=== PATIENT | female | born 1970 | race Caucasian/White ===

== ENCOUNTER 2018-05-14 20:21 | Emergency (ER) | payer OTHER ==
[~2018-05-14] VITALS: Ht 157.5 cm; Wt 65.8 kg
[2018-05-14 20:25] VITALS: BP_SYST 133
--- NOTE | 2018-05-14 20:25 | NUR ---
Patient vital signs stable, condition stable to be placed in waiting room at this time. No acute distress noted. Will continue to monitor.
--- NOTE | 2018-05-14 21:10 | NUR ---
Patient called for placement no answer and not found in ED waiting room.
--- NOTE | 2018-05-14 21:15 | NUR ---
Patient called for placement no answer and not found in ED waiting room.
--- NOTE | 2018-05-14 21:29 | NUR ---
Patient called for placement no answer and not found in ED waiting room.
== END 2018-05-14 21:29 | disposition left against medical advice (07) ==
LOC: SED 20:21
DX: T78.40XA Allergy, unspecified, initial encounter (principal); Z53.21 Procedure and treatment not carried out due to patient leaving prior to being seen by health care provider

== ENCOUNTER 2023-01-14 10:57 | Emergency (ER) | payer BC, OTHER ==
[~2023-01-14] VITALS: Ht 162.6 cm; Wt 70.3 kg
[2023-01-14 11:17] VITALS: BP_SYST 145
[2023-01-14] MEDS ORDERED: MECLIZINE HCL 25 MG TABLET (ANITVERT) PO ONE (11:45)
[2023-01-14] MEDS ORDERED: NACL 0.9% 1,000 ML IV ONE (11:45)
[2023-01-14] MEDS ORDERED: KETOROLAC TROMETHAMINE 15 MG VIAL IVP ONE (11:45)
[2023-01-14 11:47] LABS: CALCIUM 8.3 mg/dL (8.4-11.0); CREATININE 0.77 mg/dL (0.55-1.30)
[2023-01-14 11:49] LABS: BASOPHILS % (AUTO) 0.5 % (0.0-2.0); EOSINOPHILS % (AUTO) 0.1 % (0.0-4.0); HEMATOCRIT 40.9 % (36-48); HEMOGLOBIN 13.2 g/dL (12.0-16.0); LYMPHOCYTES # (AUTO) 1.1 K/uL (1.0-5.5); LYMPHOCYTES % (AUTO) 15.4 % (20.5-51.5); MEAN CORPUSCULAR HEMOGLOBIN 25 pg (27-31); MEAN CORPUSCULAR HGB CONC 32 % (32-36); MEAN CORPUSCULAR VOLUME 77 fL (79.0-98.0); MONOCYTES # (AUTO) 0.2 K/uL (0.0-1.0); MONOCYTES % (AUTO) 2.3 % (1.7-9.3); NEUTROPHILS # (AUTO) 5.8 K/uL (1.8-7.7); NEUTROPHILS % (AUTO) 81.7 % (40.0-70.0); PLATELET COUNT (AUTO) 266 K/uL (130-430); RED BLOOD CELL COUNT(AUTO) 5.34 MIL/uL (4.2-6.2); RED CELL DISTRIBUTION WIDTH 16.8 % (9.0-15.0); WHITE BLOOD COUNT (AUTO) 7.1 K/uL (4.8-10.8)
[2023-01-14 11:51] LABS: ALBUMIN 3.7 g/dL (3.4-4.8); TOTAL BILIRUBIN 0.3 mg/dL (0.0-1.0)
[2023-01-14] MEDS ORDERED: MECL-108 PO (13:16)
[2023-01-14 13:33] VITALS: BP_SYST 116
== END 2023-01-14 13:37 | disposition home or self-care (01) ==
LOC: SED 10:57
DX: H81.10 Benign paroxysmal vertigo, unspecified ear (principal); R11.10 Vomiting, unspecified; R19.7 Diarrhea, unspecified; Z88.1 Allergy status to other antibiotic agents; Z88.2 Allergy status to sulfonamides; Z88.6 Allergy status to analgesic agent; Z79.899 Other long term (current) drug therapy
CPT/HCPCS: 99285; 96374; 70450; 96361; 80053; 85025; 36415; 76376; J8597; J1885; J7030